=== PATIENT | female | born 1935 | race Two or more races ===

== ENCOUNTER 2020-05-06 12:54 | Emergency (ER) | payer MEDICARE ==
[~2020-05-06] VITALS: Ht 154.9 cm; Wt 75.7 kg
[2020-05-06 13:58] LABS: BASOPHILS % (AUTO) 0 % (0-1); EOSINOPHILS % (AUTO) 1 % (1-7); LYMPHOCYTES % (AUTO) 14 % (22-44); MEAN CORPUSCULAR HGB CONC 33.9 g/dL (32.4-35.8); MEAN PLATELET VOLUME 6.8 fL (7.4-10.4); MONOCYTES % (AUTO) 7 % (2-9); NEUTROPHILS % (AUTO) 78 % (42-75); PLATELET COUNT 208 x10^3/uL (130-400); RED BLOOD COUNT 4.05 x10^6/uL (3.82-5.3)
[2020-05-06 14:01] LABS: MD NO
[2020-05-06 14:09] LABS: ALBUMIN 3.6 g/dL (3.4-5.0); ANION GAP 9 mmol/L (5-15); CHLORIDE 108 mmol/L (98-107); CREATININE 0.98 mg/dL (0.55-1.02)
[2020-05-06 14:30] LABS: MICROSCOPIC INDICATED
--- NOTE | 2020-05-06 14:45 | NUR ---
PT OOB AND AMBULATED TO BATHROOM. PT RPTS THAT SHE WAS ABLE TO VOID AND DID NOT HAVE PAIN. PT RTD TO ROOM W/O INCIDENT. ALL TESTS RESULTED AND CHART UP FOR RECHECK
[2020-05-06 15:59] VITALS: BP 156/60
--- NOTE | 2020-05-06 16:01 | NUR ---
Patient/Caregiver given discharge instructions and they have confirmed that they understand the instructions. Patient ambulatory with steady gait.
== END 2020-05-06 16:01 | disposition home or self-care (01) ==
LOC: ED 14:54
DX: N30.01 Acute cystitis with hematuria (principal); R33.9 Retention of urine, unspecified; Z85.51 Personal history of malignant neoplasm of bladder
CPT/HCPCS: 36415; 80048; 81001; 82040; 85025; 87086; 87186; 99283